=== PATIENT | female | born 1980 | race Caucasian/White ===

== ENCOUNTER 2020-07-13 08:57 | Outpatient (CLI) | payer BC ==
--- NOTE | 2020-07-19 09:04 | MMO ---
Bilateral MAMMO Bilat Screen [facility]. CLINICAL HISTORY: Patient is 40 years old and is seen for screening. The patient has no family history of breast cancer. The patient has no personal history of cancer. The patient has a history of bilateral Implants in 2010. VIEWS: The views performed were: bilateral craniocaudal with tomosynthesis and bilateral mediolateral oblique with tomosynthesis. FILMS COMPARED: The present examination has been compared to prior imaging studies performed at [facility] on 12/28/2014 and 04/07/2018. This study has been interpreted with the assistance of computer-aided detection. MAMMOGRAM FINDINGS: The breasts are heterogeneously dense, which could obscure a lesion on mammography. There is a mass seen in the sub-areolar region of the right breast. In the left breast, there are no suspicious masses, calcifications or areas of architectural distortion. IMPRESSION: MASS IN THE RIGHT BREAST REQUIRES ADDITIONAL EVALUATION. SPOT COMPRESSION IS RECOMMENDED. AN ULTRASOUND EXAM IS RECOMMENDED. THE RESULTS OF THIS EXAM WERE SENT TO THE PATIENT. ACR BI-RADS Category 0 - Incomplete: Need additional imaging evaluation. [facility] will notify the patient of the need for additional imaging services. MAMMOGRAPHY NOTE: 1. A negative mammogram report should not delay a biopsy if a dominant of clinically suspicious mass is present. 2. Approximately 10% to 15% of breast cancers are not detected by mammography. 3. Adenosis and dense breasts may obscure an underlying neoplasm. Reported by: DANIEL BANUELOS MD Electonically Signed: [id number]
== END 2020-07-13 08:58 | disposition home or self-care (01) ==
LOC: BICMAMMO 08:57
PROVIDERS: ATTEND Obstetrics & Gynecology
DX: Z12.31 Encounter for screening mammogram for malignant neoplasm of breast (principal); N63.41 Unspecified lump in right breast, subareolar; Z98.82 Breast implant status
CPT/HCPCS: 77063; 77067

== ENCOUNTER 2023-03-04 10:33 | Outpatient (CLI) | payer BC | END 2023-03-04 10:34 | disposition home or self-care (01) | LOC: BICMAMMO 10:33 | PROVIDERS: ATTEND Nurse Practitioner Family | DX: N63.10 Unspecified lump in the right breast, unspecified quadrant (principal); Z91.89 Other specified personal risk factors, not elsewhere classified | CPT/HCPCS: G0279 ==

== ENCOUNTER 2024-07-27 09:58 | Outpatient (CLI) | payer BC | END 2024-07-27 09:59 | disposition home or self-care (01) | LOC: BICMAMMO 09:58 | PROVIDERS: ATTEND Family Medicine | DX: N63.21 Unspecified lump in the left breast, upper outer quadrant (principal); N60.19 Diffuse cystic mastopathy of unspecified breast | CPT/HCPCS: 76642; 77066; G0279 ==

== ENCOUNTER → 2024-07-28 | Day surgery (SDC) | payer BC | LOC: BICULT 08:38 | PROVIDERS: ATTEND Family Medicine | PROC: 0H9U3ZZ Drainage of Left Breast, Percutaneous Approach (ICD-10-PCS; principal; 2024-07-28) | DX: N60.02 Solitary cyst of left breast (principal) | CPT/HCPCS: 19000 ==